=== PATIENT | female | born 1930 | race Caucasian/White ===

== ENCOUNTER → 2016-06-10 | Outpatient (CLI) | payer MEDICARE | END | disposition home or self-care (01) | LOC: PCVCCLINIC 14:32 | PROVIDERS: ATTEND Internal Medicine | DX: I65.29 Occlusion and stenosis of unspecified carotid artery (principal); I10 Essential (primary) hypertension; E11.9 Type 2 diabetes mellitus without complications; C92.00 Acute myeloblastic leukemia, not having achieved remission; D61.818 Other pancytopenia; E78.5 Hyperlipidemia, unspecified | CPT/HCPCS: G0463 ==